=== PATIENT | male | born 1985 | race African-American/Black ===

== ENCOUNTER 2023-09-26 01:08 | Observation (INO) | payer SELFPAY ==
[2023-09-26] MEDS ORDERED: HYDROmorphone HCl 2 MG/ML VIAL ONE ×5 (04:46→14:49)
[2023-09-26] MEDS: HYDROmorphone HCl 2 MG/ML VIAL IVPUSH ONE ×5 (05:00→11:05)
[2023-09-26] MEDS: SODIUM CHLORIDE 1,000 ML IV STA (05:31)
[2023-09-26 06:42] LABS: POTASSIUM 3.3 mmol/L (3.5-5.1)
[2023-09-26 06:44] LABS: CALCIUM 10.4 mg/dL (8.5-10.1)
[2023-09-26 06:45] LABS: ALBUMIN 3.7 g/dl (3.4-5.0); BLOOD UREA NITROGEN 29.3 mg/dL (7-18)
[2023-09-26 06:48] LABS: CREATININE 6.9 mg/dL (0.55-1.3)
[2023-09-26 06:50] LABS: BILIRUBIN,TOTAL 1.5 mg/dL (0.2-1); TOT PROT 7.5 g/dl (6.4-8.2)
[2023-09-26 07:03] LABS: HEMATOCRIT 30.3 % (35.4-49); HEMOGLOBIN 10.6 GM/dL (11.7-16.9); MCHC 35.1 g/dl (32.0-35.9); MEAN CELL VOLUME 94.1 fl (80-96); PLATELET COUNT 138 10^3/uL (134-434); RBC 3.22 M/mm3 (4.00-5.60); RDW 21.4 % (11.9-15.9); WHITE BLOOD COUNT 4.5 K/mm3 (4.0-10.0)
[2023-09-26 08:58] LABS: ANISOCYTOSIS 2+; MACROCYTOSIS 1+
[2023-09-26 08:59] LABS: PLATELET ESTIMATE ADEQUATE
[2023-09-26] MEDS ORDERED: HYDROmorphone HCL 2 MG TABLET PO PRN (09:59)
[2023-09-26] MEDS ORDERED: HYDROmorphone HCl 2 MG/ML VIAL IVPUSH PRN ×2 (10:00→10:18)
[2023-09-26] MEDS: ACETAMINOPHEN 500 MG TABLET (FP) PO SCH (10:30)
[2023-09-26] MEDS ORDERED: HYDROmorphone HCL/PF 1 MG/ML VIAL ONE ×2 (10:41→14:48)
[2023-09-26] MEDS: FOLIC ACID 1 MG TABLET (FP) PO SCH (12:00)
[2023-09-26] MEDS: ASPIRIN 81 MG CHEWABLE TABLETS PO SCH (12:00)
[2023-09-26] MEDS: HYDROXYUREA 500 MG CAPSULE PO SCH (12:00)
[2023-09-26] MEDS: NIFEdipine E.R 60 MG TABLET PO SCH (12:05)
[2023-09-26] MEDS: SEVELAMER CARBONATE 800 MG TAB (FP) PO SCH (12:30)
[2023-09-26] MEDS ORDERED: NIFEdipine E.R. 30 MG TABLET PO ONE (14:24)
[2023-09-26] MEDS ORDERED: cloNIDine HCL 0.1 MG TABLET ONE (14:25)
[2023-09-26] MEDS: LABETALOL HCL 100 MG TABLET (FP) PO SCH (14:35)
[2023-09-26] MEDS: diphenhydrAMINE HCL 25 MG CAPSULE (FP) PO ONE (14:35)
[2023-09-26] MEDS: cloNIDine HCL 0.1 MG TABLET PO SCH (14:37)
[2023-09-26] MEDS: hydrALAZINE HCL 50 MG TABLET (FP) PO SCH (14:37)
[2023-09-26 16:59] VITALS: BMI 24.0
[2023-09-26] MEDS: diphenhydrAMINE HCL 25 MG CAPSULE (FP) PO PRN (20:50)
[2023-09-26] MEDS: HYDROmorphone HCL CARPU-JECT 2 MG/1 ML DISP.SYRIN IVPUSH PRN (21:03)
[2023-09-26] MEDS: HEPARIN NA (PORCINE) 5,000 UNITS/ML 1ML VIAL SQ SCH (22:12)
[2023-09-27 01:32] VITALS: RESP 18
[2023-09-27] MEDS: HYDROmorphone HCL 2 MG TABLET PO PRN (08:58)
[2023-09-27] MEDS: HYDROmorphone HCL CARPU-JECT 2 MG/1 ML DISP.SYRIN IVPUSH PRN (12:40)
[2023-09-27] MEDS: PANTOPRAZOLE SODIUM 40 MG VIAL IVPUSH SCH (14:51)
[2023-09-27] MEDS ORDERED: SODIUM CHLORIDE 250 ML IV PRN ×2 (16:43→17:42)
[2023-09-27 17:09] LABS: HEMATOCRIT 24.6 % (35.4-49); HEMOGLOBIN 8.5 GM/dL (11.7-16.9); MCH 33.3 pg (25.7-33.7); MCHC 34.4 g/dl (32.0-35.9); MEAN CELL VOLUME 96.9 fl (80-96); MEAN PLT VOLUME 7.2 fl (7.5-11.1); PLATELET COUNT 115 10^3/uL (134-434); RBC 2.54 M/mm3 (4.00-5.60); RDW 22.1 % (11.9-15.9); WHITE BLOOD COUNT 4.2 K/mm3 (4.0-10.0)
[2023-09-27 17:30] LABS: CHLORIDE 102 mmol/L (98-107); POTASSIUM 3.6 mmol/L (3.5-5.1); SODIUM 140 mmol/L (136-145)
[2023-09-27 17:34] LABS: ANION GAP 12 mmol/L (4-13); BLOOD UREA NITROGEN 41.4 mg/dL (7-18); CO2 26 mmol/L (21-32); GLUCOSE,RANDOM 94 mg/dL (74-106)
[2023-09-27] MEDS: HEPARIN NA (PORCINE) 5,000 UNITS/ML 1ML VIAL IVPUSH ONE (17:34)
[2023-09-27] MEDS: EPOETIN ALFA-EPBX 4,000 UNIT/ML VIAL IVPUSH ONE (17:34)
[2023-09-27 17:37] LABS: SGOT/AST 13 U/L (15-37); SGPT/ALT 8 U/L (13-61)
[2023-09-27 17:38] LABS: BILIRUBIN,TOTAL 1.1 mg/dL (0.2-1); TOT PROT 6.4 g/dl (6.4-8.2)
[2023-09-27 17:40] LABS: ALK PHOS 160 U/L (45-117)
[2023-09-27 17:49] LABS: CALCIUM 8.8 mg/dL (8.5-10.1); CREATININE 9.3 mg/dL (0.55-1.3)
[2023-09-28] MEDS ORDERED: diphenhydrAMINE HCL 25 MG CAPSULE (FP) PO PRN (07:54)
[2023-09-28] MEDS ORDERED: SODIUM CHLORIDE 250 ML IV PRN (08:14)
[2023-09-28] MEDS: HYDROmorphone HCL CARPU-JECT 2 MG/1 ML DISP.SYRIN IVPUSH PRN (09:50)
[2023-09-28] MEDS: PANTOPRAZOLE 40 MG TABLET PO SCH (09:55)
[2023-09-28 17:22] VITALS: TEMP 97.8
[2023-09-28] MEDS ORDERED: EPOETIN ALFA-EPBX 4,000 UNIT/ML VIAL SQ ONE (17:42)
[2023-09-28] MEDS: EPOETIN ALFA-EPBX 10,000 UNIT/ML VIAL SQ ONE (17:52)
[2023-09-28 19:06] VITALS: BP 167/110; PULSE 85
== END 2023-09-28 20:59 | disposition home or self-care (01) ==
LOC: FER 01:08 → UNDOADMOB 09:47 → FM/S 09:47 → J5S 09:57 → FM/S 10:08 → J5S 16:29 → UNDOADMOB 16:29 → INTOOBSV 16:29 → J5S 20:24 → J4S 20:24
PROVIDERS: ADMIT Internal Medicine; ATTEND Internal Medicine
CPT/HCPCS: 36415; 71045-TC-FY; 80053; 85025; 85027; 86704; 86705; 86803; 87340; 87517; 94010; 97116-GP; 97161-GP; 99285-25; G0378; J1644; J8999; Q5106